=== PATIENT | male | born 1990 | race Caucasian/White ===

== ENCOUNTER 2021-10-15 22:53 | Outpatient (CLI) | payer OTHER | END 2021-10-15 22:54 | disposition EMS.NT | LOC: EMS 22:53 | DX: R10.11 Right upper quadrant pain (principal) ==

== ENCOUNTER 2021-10-15 23:26 | Emergency (ER) | payer OTHER ==
[2021-10-15] MEDS ORDERED: MORPHINE 2 MG/ML CARPUJECT IVP STA (23:41)
[2021-10-15] MEDS ORDERED: ONDANSETRON 4 MG/2 ML VIAL IVP STA (23:41)
[2021-10-16 00:24] LABS: BASOPHILS # (AUTO) 0.1 10^3/uL (0.0-0.1); BASOPHILS % (AUTO) 0.9 %; EOSINOPHILS # (AUTO) 0.3 10^3/uL (0.0-0.7); HCT - HEMATOCRIT 45.1 % (42.0-52.0); HGB - HEMOGLOBIN 15.2 g/dL (14.0-18.0); LYMPHOCYTES # (AUTO) 2.7 10^3/uL (1.5-3.5); LYMPHOCYTES % (AUTO) 35.1 %; MEAN CORPUSCULAR HGB CONC 33.7 g/dL (32.0-36.0); MEAN CORPUSCULAR VOLUME 83.2 fL (80.0-94.0); MEAN PLATELET VOLUME 9.9 fL (7.4-11.4); MONOCYTES # (AUTO) 0.6 10^3/uL (0.0-1.0); MONOCYTES % (AUTO) 7.3 %; NEUTROPHILS % (AUTO) 52.3 %; PLT - PLATELET COUNT 247 10^3/uL (130-450); RED BLOOD COUNT 5.42 10^6/uL (4.70-6.10); WHITE BLOOD COUNT 7.7 x10^3/uL (4.8-10.8)
[2021-10-16 00:33] LABS: ALBUMIN 4.5 g/dL (3.2-5.5); ALBUMIN/GLOBULIN RATIO 1.4 (1.0-2.2); BILIRUBIN,TOTAL 0.6 mg/dL (0.2-1.0); CALCIUM 9.6 mg/dL (8.5-10.3); POTASSIUM 4.3 mmol/L (3.5-5.0); TOTAL PROTEIN 7.8 g/dL (6.7-8.2)
--- NOTE | 2021-10-16 01:06 | ED Physician Documentation ---
PD HPI ABD PAIN - Stated complaint Stated Complaint: ABD PX - Chief complaint Chief Complaint: Abd Pain - History obtained from History obtained from: Patient - History of Present Illness Location: RUQ - Additional information Additional information: Patient with history of hiatal hernia presenting for evaluation of sharp right upper quadrant pain that started suddenly at 9PM With associated nausea. He denies previous history of similar Pains in the past. The pain does not radiate. Nothing makes it better or worse. He did try to induce emesis once which did not improve his symptoms. He denies diarrhea or dysuria. Patient reports having sloppy [employer] for dinner tonight. He denies fever, cough, chest pain, back pain, difficulty breathing. Review of Systems Constitutional: denies: Fever Nose: denies: Congestion Cardiac: denies: Chest pain / pressure, Palpitations GI: reports: Abdominal Pain, Nausea. denies: Vomiting : denies: Dysuria Skin: denies: Rash Musculoskeletal: denies: Back pain Neurologic: denies: Headache PD PAST MEDICAL HISTORY - Past Medical History Past Medical History: Yes Respiratory: Sleep apnea - Past Surgical History Past Surgical History: Yes General: Hiatal hernia repair - Present Medications Home Medications: Ambulatory Orders Medication Instructions Recorded Confirmed HYDROcod/ACETAM 5/325 [[place] 5/325] 1 tab PO Q6H PRN #10 tablet 10/16/21 Ondansetron Odt [Zofran] 4 mg TL Q6H PRN #10 tablet 10/16/21 - Allergies Allergies/Adverse Reactions: Allergies Allergy/AdvReac Type Severity Reaction Status Date / Time No Known Drug Allergies Allergy Verified 10/15/21 23:34 - Social History Does the pt smoke?: No Smoking Status: Never smoker PD ED PE NORMAL - General General: Alert and oriented X 3, No acute distress, Well developed/nourished - HEENT HEENT: Atraumatic - Neck Neck: Supple, no meningeal sign - Cardiac Cardiac: RRR, No murmur, Strong equal pulses - Respiratory Respiratory: No respiratory distress, Clear bilaterally - Abdomen Abdomen: Normal bowel sounds, Soft, Non distended, Other (Right upper quadrant tenderness to palpation) - Derm Derm: Warm and dry - Extremities Extremities: No edema - Psych Psych: Normal mood Results - Vitals Vitals: Vital Signs - 24 hr 10/15/21 10/15/21 10/16/21 23:31 23:34 01:34 Temperature 36.3 C L 36.5 C 36.5 C Heart Rate 77 77 73 Respiratory 18 18 15 Rate Blood Pressure 165/108 H 165/108 H 134/75 H O2 Saturation 99 99 95 Oxygen O2 Source Room air - Labs Labs: Laboratory Tests 10/15/21 10/15/21 00:13 00:13 WBC 7.7 RBC 5.42 Hgb 15.2 Hct 45.1 MCV 83.2 MCH 28.0 MCHC 33.7 RDW 13.0 Plt Count 247 MPV 9.9 Neut # (Auto) 4.0 Lymph # (Auto) 2.7 [place] # (Auto) 0.6 Eos # (Auto) 0.3 Baso # (Auto) 0.1 Absolute Nucleated RBC 0.00 Nucleated RBC % 0.0 Sodium 142 Potassium 4.3 Chloride 105 Carbon Dioxide 28 Anion Gap 9.0 BUN 16 Creatinine 1.0 Estimated GFR (MDRD) 87 L Glucose 106 H Calcium 9.6 Total Bilirubin 0.6 AST 31 ALT 63 H Alkaline Phosphatase 65 Total Protein 7.8 Albumin 4.5 Globulin 3.3 Albumin/Globulin Ratio 1.4 Lipase 33 PD MEDICAL DECISION MAKING - ED course Complexity details: reviewed results, re-evaluated patient, d/w patient ED course: Patient evaluated for right upper quadrant tenderness. Vital signs are stable. Labs are unrevealing. Ultrasound was obtained with findings of cholelithiasis but no clear evidence of cholecystitis. On repeat exam, his pain has improved. Do not think he needs further evaluation emergently at this time with a HIDA scan or surgical consult. Patient is aware of the findings of gallstones and need for follow-up with his PCP.He is advised on strict return precautions for any worsening symptoms. 0201 - On repeat exam patient has no right upper quadrant tenderness on palpation. He feels improved. Departure - Departure Disposition: 01 Home, Self Care Clinical Impression: Cholelithiasis Qualifiers: Cholelithiasis location: gallbladder Cholecystitis presence: without cholecystitis Biliary obstruction: without biliary obstruction Qualified Code(s): K80.20 - Calculus of gallbladder without cholecystitis without obstruction Condition: Stable Instructions: ED Gallstone W Biliary Colic Prescriptions: HYDROcod/ACETAM 5/325 [[place] 5/325] 1 tab PO Q6H PRN #10 tablet PRN Reason: Pain Ondansetron Odt [Zofran] 4 mg TL Q6H PRN #10 tablet PRN Reason: Nausea / Vomiting Comments: You were evaluated for abdominal pain and found to have stones in your gallbladder. Your labs were reassuring. Your vital signs were also stable. At this time I do not see signs of an infection in your gallbladder.I would recommend close follow-up with your PCM through the [facility] as you may need referral to a general surgeon to electively have your gallbladder removed if it continues to cause you pain. I will send you with a small amount of narcotic pain medication and nausea medication in case your symptoms return.If you have any worsening symptoms such as increased pain, fever, vomiting or other concerns please return to the emergency department.I have sent your prescriptions to [facility] in [place]. Forms: Activity restrictions Discharge Date/Time: 10/16/21 02:24
[2021-10-16 01:48] VITALS: BP 134/75
--- NOTE | 2021-10-16 01:50 | Ultrasound Report ---
PROCEDURE: Abdomen Limited INDICATIONS: RUQ pain TECHNIQUE: Real-time focused scanning was performed of the abdomen, with image documentation. COMPARISON: None. FINDINGS: The liver demonstrates increased echogenicity with coarse sonographic echotexture consistent with fat ty infiltration. There is mild focal sparing along the gallbladder fossa. Hepatopedal flow demonstrat ed within the main portal vein. Gallbladder demonstrates gallstones without definite gallbladder wall thickening or pericholecystic f luid. No intrahepatic biliary ductal dilatation. The patient has common bile duct measures up to 0.5 cm. The right kidney measures 10.4 cm. No hydronephrosis. The pancreas was not well seen sonographically. Evaluation limited by patient's body habitus and bowel gas. IMPRESSION: 1. Cholelithiasis without definite evidence of cholecystitis. 2. Increased hepatic echogenicity compatible steatosis. Reviewed by: Cedric Byrne MD on 10/16/2021 1:49 AM PDT Approved by: Cedric Byrne MD on 10/16/2021 1:49 AM PDT Station ID: [id number]
[2021-10-16] MEDS ORDERED: ONDANSETRON ODT 4 MG Prepack 2 TL PRN (02:01)
[2021-10-16] MEDS ORDERED: HYDROcod/ACET 5/325 Prepack 4 PO STA (02:01)
== END 2021-10-16 02:24 | disposition home or self-care (01) ==
LOC: ED 23:26
DX: K80.20 Calculus of gallbladder without cholecystitis without obstruction (principal)
CPT/HCPCS: 36415; 80053; 83690; 85025; 96374; 96375; 99282